=== PATIENT | female | born 1990 | race Caucasian/White ===

== ENCOUNTER → 2016-07-13 | Outpatient (CLI) | payer OTHER | LOC: EMI 10:09 | DX: M54.12 Radiculopathy, cervical region (principal) | CPT/HCPCS: 72141 ==

== ENCOUNTER 2020-08-08 08:08 | Emergency (ER) | payer OTHER ==
[~2020-08-08 08:08] MED LIST: COLACE 100MG C100 MG PO; IBUPROFEN600 MG PO; LORTAB 5-325 M1 EACH PO; NEXIUM2.5 MG PO; NORCO 5-325 TA1 EACH PO; PRENATAL VITAM1 EAC3 PO
[2020-08-08 10:05] LABS: HEMOGLOBIN 13.9 gm/dl (12.3-15.3); RED BLOOD COUNT 4.76 M/UL (4.00-5.10); WHITE BLOOD COUNT 13.3 K/UL (4.5-11.0)
[2020-08-08 10:26] LABS: BUN/CREATININE RATIO 17 (0-10)
[2020-08-08] MEDS ORDERED: MACROBID 100 M100 MG PO (12:26)
[2020-08-08] MEDS ORDERED: PYRIDIUM100 MG PO (12:26)
[2020-08-08] MEDS ORDERED: ZOFRAN ODT 4 MG4 MG SL (12:26)
[2020-08-08] MEDS ORDERED: TORADOL 10 MG T10 MG PO (12:26)
== END 2020-08-08 12:47 | disposition home or self-care (01) ==
LOC: ER1 08:08
PROVIDERS: Physician Assistant
DX: N30.90 Cystitis, unspecified without hematuria (principal); Z90.49 Acquired absence of other specified parts of digestive tract; Z88.1 Allergy status to other antibiotic agents; Z88.2 Allergy status to sulfonamides
CPT/HCPCS: 80053; 81001; 84703; 85025; 96374; 96375; 99284; J1885; J2405

== ENCOUNTER 2021-01-22 19:44 | Emergency (ER) | payer OTHER ==
[~2021-01-22] VITALS: Ht 167.6 cm; Wt 78.9 kg
[~2021-01-22 19:44] MED LIST changes: +MACROBID 100 M100 MG PO; +PYRIDIUM100 MG PO; +TORADOL 10 MG T10 MG PO; +ZOFRAN ODT 4 MG4 MG SL
== END 2021-01-22 22:30 | disposition home or self-care (01) ==
LOC: ER1 19:44
DX: U07.1 COVID-19 (principal); Z23 Encounter for immunization; Z90.49 Acquired absence of other specified parts of digestive tract; Z88.1 Allergy status to other antibiotic agents; Z88.2 Allergy status to sulfonamides
CPT/HCPCS: 99283; M0243